=== PATIENT | female | born 1985 ===

== ENCOUNTER → 2024-07-09 | Day surgery (SDC) | payer OTHER ==
[~2024-07-09] MED LIST: Dexamethasone 20 MG/5 ML VIAL ONE; Dexmedetomidine 200 MCG/2 ML VIAL ONE; Ketorolac Tromethamine 30 MG (1 mL) VIAL ONE; Lidocaine 2% PF 5 ML VIAL ONE; Midazolam HCl 2 mg/2 ml Vial ONE; Ondansetron PF 4 MG/2 ML Vial ONE; PROPOFOL 200 MG/20 ML VIAL ONE; fentaNYL 50 mcg/mL 1 mL Vial ONE
== END ==
LOC: CSHSDC 08:00
PROVIDERS: ATTEND Student in an Organized Health Care Education/Training Program
PROC: 0UDB8ZZ Extraction of Endometrium, Via Natural or Artificial Opening Endoscopic (ICD-10-PCS; principal; 2024-07-09)
DX: N85.8 Other specified noninflammatory disorders of uterus (principal); J45.909 Unspecified asthma, uncomplicated; E66.9 Obesity, unspecified; Z68.38 Body mass index [BMI] 38.0-38.9, adult; Z79.899 Other long term (current) drug therapy
CPT/HCPCS: 88305; J1100; J1885; J2250; J2405; J2704; J3010